=== PATIENT | female | born 1930 | race Caucasian/White ===

== ENCOUNTER → 2016-12-15 | Outpatient (CLI) | payer MEDICARE, OTHER ==
--- NOTE | 2016-12-15 13:01 | XR ---
EXAMINATION TYPE: XR chest 2V DATE OF EXAM: 12/15/2016 9:50 AM COMPARISON: NONE TECHNIQUE: PA and lateral views submitted. HISTORY: Shortness of breath FINDINGS: The lungs are clear and there is no pneumothorax, pleural effusion, or focal pneumonia. Left-sided d ouble lead pacemaker seen. Interstitium is coarsened. Inspiration limited. IMPRESSION: 1. Coarsened interstitium could be seen with bronchitis or interstitial lung disease or fibrosis. Cor relate clinically.
== END | disposition home or self-care (01) ==
LOC: RADXRMAIN 09:36
PROVIDERS: ATTEND Internal Medicine
DX: R05 Cough (principal); R06.09 Other forms of dyspnea
CPT/HCPCS: 71020

== ENCOUNTER → 2020-08-23 | Outpatient (CLI) | payer MEDICARE ==
--- NOTE | 2020-08-23 15:49 | US ---
EXAMINATION TYPE: US kidneys/renal and bladder DATE OF EXAM: 08/23/2020 COMPARISON: NONE CLINICAL HISTORY: 89-year-old female N18.3 Chronic kidney disease, stage III. TECHNIQUE: Multiple sonographic images of the kidneys and bladder are obtained. FINDINGS: EXAM MEASUREMENTS: Right Kidney: 8.8 x 3.9 x 3.4 cm Left Kidney: 10.2 x 3.6 x 4.3 cm Independent Producer notes: Patient of large body habitus technically difficult, limited Right Kidney: atrophied, no obvious masses Left Kidney: No hydronephrosis. Cortical thinning. Bladder: The pvc loader reports that the patient felt very full. The bladder is very poorly distende d. IMPRESSION: 1. No hydronephrosis. Changes of chronic medical renal disease. The right kidney is asymmetrically at rophic. 2. Poorly distended bladder despite the patient feeling very full.
== END | disposition home or self-care (01) ==
LOC: RADUSWWP 14:45
PROVIDERS: ATTEND Internal Medicine
DX: N26.1 Atrophy of kidney (terminal) (principal); N32.89 Other specified disorders of bladder; N18.30 Chronic kidney disease, stage 3 unspecified
CPT/HCPCS: 76770

== ENCOUNTER → 2020-12-06 | Outpatient (CLI) | payer MEDICARE ==
--- NOTE | 2020-12-06 09:01 | CT ---
EXAMINATION TYPE: CT abdomen pelvis wo con DATE OF EXAM: 12/06/2020 HISTORY: Left lower quadrant pain CT DLP: 786.7 mGycm. Automated Exposure Control for Dose Reduction was Utilized. TECHNIQUE: CT scan of the abdomen and pelvis is performed without oral or IV contrast. COMPARISON: NONE FINDINGS: Within the limitations of a non-contrast study, the following observations are made. LUNG BASES: Partial visualization of right-sided pacemaker wires and at least moderate coronary arter y calcification. LIVER/GB: Dependent gallstones in gallbladder. No surrounding inflammatory change. There is 1.1 cm lo w dense lesion in the hepatic dome on axial image 13, suspect benign thin-walled cyst PANCREAS: Mild to moderate generalized fat replaced atrophy. SPLEEN: No significant abnormality is seen. ADRENALS: No significant abnormality is seen. KIDNEYS: Cortical thinning in both kidneys. Finding consistent with product of chronic medical renal disease. No hydronephrosis. BOWEL: Roughly 2.5 cm second portion duodenal diverticulum. Slightly wandering cecum into the right m id abdomen axial image 70. Normal-appearing appendix extending inferiorly from this. No suspicious sm all large bowel dilatation. Scattered colonic diverticula greatest in the sigmoid colon. No CT eviden ce for acute diverticulitis. GENITAL ORGANS: Anteverted uterus. LYMPH NODES: No greater than 1cm abdominal or pelvic lymph nodes are appreciated. OSSEOUS STRUCTURES: Dextroconvex scoliosis centered at L2-L3 level. Moderate multilevel disc space na rrowing along with endplate sclerosis and multilevel vacuum disc phenomena. Facet arthropathy lower l umbar spine. Most prominent spinal canal effacement or stenosis at L3-L4 and L4-L5 levels. OTHER: Moderate to severe calcified plaque of the aorta extends into branch vessels. Moderate-sized f at-containing umbilical hernia IMPRESSION: Sigmoid colonic diverticulosis without CT evidence for acute diverticulitis. No acute fin dings are evident.
== END | disposition home or self-care (01) ==
LOC: RADCTMAIN 07:55
PROVIDERS: ATTEND Internal Medicine
DX: K57.30 Diverticulosis of large intestine without perforation or abscess without bleeding (principal)
CPT/HCPCS: 74176

== ENCOUNTER → 2021-09-01 | Outpatient (CLI) | payer MEDICARE ==
--- NOTE | 2021-09-02 10:55 | NM ---
EXAMINATION TYPE: NM parathyroid w/spect DATE OF EXAM: 09/01/2021 COMPARISON: NONE HISTORY: Hypercalcemia TECHNIQUE: Following administration of 25.0 mCi Tc99m Sestamibi. Anterior projection images of the neck and ches t were obtained 10 minutes and 3 hours post injection. SPECT images of the neck and chest were obtai tanika and reconstructed in three axes. FINDINGS: Thyroid tracer washout: Delayed images demonstrate incomplete tracer washout from the thyroid. Parathyroid uptake: None. The two-hour delayed images do not demonstrate any focal abnormal persisten t uptake in the region of the parathyroid glands to suggest parathyroid adenoma. Normal uptake: There is physiological tracer uptake in the salivary glands, and thyroid gland. IMPRESSION: Incomplete radiotracer washout from the thyroid gland. Difficult to exclude parathyroid adenoma.
== END | disposition home or self-care (01) ==
LOC: RADNMMAIN 10:57
PROVIDERS: ATTEND Internal Medicine Nephrology
DX: E83.52 Hypercalcemia (principal)
CPT/HCPCS: 78071; A9500